=== PATIENT | female | born 1980 | race Two or more races ===

== ENCOUNTER → 2019-10-22 | Outpatient (CLI) | payer BC ==
--- NOTE | 2019-10-22 12:21 | RAD ---
Pelvic ultrasound to include transabdominal and transvaginal imaging 10/22/2019 CLINICAL HISTORY: Dysfunctional uterine bleeding. TECHNIQUE: Using the distended urinary bladder as a sonographic window, a real-time ultrasound examination of the pelvis was performed. Multiple images were obtained. FINDINGS: The uterus is within normal limits in size and echogenicity. It measures 8.7 x 4.9 x 4.6 cm in longitudinal, transverse, and AP dimensions. The endometrial echo complex measures 4 mm in thickness which is within normal limits. An oval-shaped hypoechoic mass is seen within the anterior aspect of the mid uterine body. This measures 2.5 cm in size. This is consistent with a fibroid. No additional abnormality of the uterus is seen. Neither ovary is visualized due to overlying bowel gas and the patient's body habitus. No adnexal mass is seen. No free fluid is noted. IMPRESSION: 2.5 cm uterine fibroid. Otherwise negative study. Electronically signed by: Иван Roberto MD (10/22/2019 12:19 PM) [id number]
== END | disposition home or self-care (01) ==
LOC: US 10:33
PROVIDERS: ATTEND Physician Assistant Medical
DX: D25.9 Leiomyoma of uterus, unspecified (principal); N93.8 Other specified abnormal uterine and vaginal bleeding
CPT/HCPCS: 76830; 76856